=== PATIENT | male | born 1990 | race African-American/Black ===

== ENCOUNTER → 2017-08-14 | Outpatient (CLI) | payer OTHER | END | disposition home or self-care (01) | LOC: C.LAB 13:42 | DX: Z02.83 Encounter for blood-alcohol and blood-drug test (principal) ==

== ENCOUNTER 2017-08-15 12:56 | Emergency (ER) | payer OTHER ==
[~2017-08-15] VITALS: Ht 165.1 cm; Wt 100.0 kg
[2017-08-15 12:59] VITALS: BP 152/11; Ht 165.1 cm; Wt 100.0 kg
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
[2017-08-15] MEDS ORDERED: HYDROmorphone INJ 1 MG/ML SYR IV STA (13:29)
[2017-08-15] MEDS ORDERED: KETOROLAC TROMETHAMINE 30 MG/ML VIAL IV STA (13:29)
[2017-08-15] MEDS ORDERED: OPTIRAY 320 IV PRN (13:45)
[2017-08-15 13:51] VITALS: O2SAT 98
[2017-08-15 14:09] LABS: ISTAT CREATININE 1.1 mg/dl (0.6-1.3); ISTAT IONIZED CALCIUM 1.09 mmol/l (1.12-1.32); ISTAT POTASSIUM 3.6 mEq/L (3.3-5.0)
[2017-08-15 14:26] LABS: BASO % 0.3 %; BASO ABS # 0.02 K/uL (0-0.2); EOS % 0.4 %; EOS ABS # 0.03 K/uL (0-0.5); HEMATOCRIT 45.3 % (42-52); HEMOGLOBIN 16.1 g/dL (14.0-18.0); IG# 0.01 K/uL (0.00-0.02); LYMPH % 41.4 %; LYMPH ABS # 2.78 K/uL (1.2-3.4); MEAN CELL VOLUME 85.3 fL (80-100); MEAN CORPUSCULAR HEMOGLOBIN 30.3 pg (25-34); MEAN CORPUSCULAR HGB CONC 35.5 g/dl (32-36); MEAN PLATELET VOLUME 10.2 fL (7.4-10.4); MONO % 7.3 %; MONO ABS # 0.49 K/uL (0.11-0.59); NEUT % 50.5 %; NEUT ABS # 3.38 K/uL (1.4-6.5); PLATELET COUNT 209 K/uL (130-400); RED CELL DISTRIBUTION WIDTH CV 12.4 % (11.5-14.5); RED CELL DISTRIBUTION WIDTH SD 38.3 fL (36.4-46.3); WHITE BLOOD COUNT 6.71 K/uL (4.8-10.8)
[2017-08-15 14:44] LABS: ALT/SGPT 47 U/L (12-78); AST/SGOT 37 U/L (15-37); BLOOD UREA NITROGEN 11 mg/dl (7-18); CALCIUM 8.8 mg/dl (8.5-10.1); CARBON DIOXIDE 30 mmol/L (21-32); CREATININE 1.25 mg/dl (0.60-1.40); GLUCOSE 99 mg/dl (70-99); LIPASE 156 U/L (73-393); POTASSIUM 3.7 mmol/L (3.5-5.1); SODIUM 136 mmol/L (136-145)
[2017-08-15 14:49] LABS: ALKALINE PHOSPHATASE 54 U/L (45-117); CKMB 7.1 ng/ml (0.5-3.6); TOTAL PROTEIN 7.8 gm/dl (6.4-8.2)
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
== END 2017-08-15 15:10 | disposition left against medical advice (07) ==
LOC: C.EDB 12:58
DX: R07.2 Precordial pain (principal); V89.2XXA Person injured in unspecified motor-vehicle accident, traffic, initial encounter